=== PATIENT | male | born 1975 | race Caucasian/White ===

== ENCOUNTER 2016-10-27 10:15 | Inpatient (IN) | payer OTHER ==
--- NOTE | ~2016-10-27 | TN ---
Unit #: [id number] #: [id number] Patient: BROOKE DESOUZA [id number] [facility] [address] [place] [address] [id number] I MR#: [id number] NAME: BROOKE DESOUZA ROOM: P205 Age: 41 Sex: M Admission Date: 10/27/2016 : 1975 Discharge Date: 10/30/2016 Attending Physician: Madonna Toledo M.D. Primary Care Physician: Primary Care Physician No LOC TRANSFER NOTE DATE OF SERVICE: 10/31/2016 HISTORY OF PRESENT ILLNESS Mr. Desouza is a 41-year-old single white male who is known to me from long time from previous multiple encounters and has been coming to the inpatient unit repeatedly, and has been encouraged several times to come to the outpatient treatment program and he finally showed up. He was admitted under my care on the adult inpatient psychiatric and chemical dependency unit from 10/27/2016 to 10/30/2016 and was brought in with depression and anxiety, and being off his medication and needing medical detox from alcohol and opioids and was medically detoxed and was stabilized on his medications and stepped down to the outpatient treatment program. Upon evaluation by me, the patient reports that he is proud that he finally showed up for the program and that he wants to work on improving his life and staying sober and improving his depressive symptoms. He reports that he has not relapsed since he has been out of the hospital. SUBSTANCE ABUSE HISTORY The patient has extensive history of substance abuse and dependence and more recently, alcohol has been his drug of choice as he has been drinking regularly and heavily and has been mixing it with opioids on regular basis. PAST PSYCHIATRIC HISTORY The patient has had history of inpatient and outpatient psychiatric and chemical dependency treatment several times and has history of poor compliance with any treatment recommendations outside of the hospital. PAST MEDICAL HISTORY No acute or chronic medical illnesses. ALLERGIES Haldol and Depakote. PERSONAL AND SOCIAL HISTORY A 41-year-old white male who reports that he is single, unemployed, and lives with friends and has fairly decent social support system. MENTAL STATUS EXAMINATION Middle-aged white male who was casually dressed with fair personal hygiene, appears to be in no acute distress or discomfort. He was awake and alert on interaction with intact orientation to time, place, and person. His mood was anxious and depressed with a congruent affect. His Unit #: [id number] #: [id number] Patient: BROOKE DESOUZA speech was slow and goal directed. He denies any suicidal or homicidal ideations, and also denies any auditory or visual hallucinations. His insight and judgment remain slightly impaired. DIAGNOSTIC IMPRESSION Psychiatric: Major depressive disorder, recurrent, moderate, without psychotic features; alcohol dependence, moderate; opioid dependence, moderate. Medical: None. Stressors: Moderate psychosocial stressors. TREATMENT PLAN 1. The patient has presented with a history of mood disorder. We will recommend enrolling him into the outpatient treatment program and maintaining him on his current medications. We will monitor his response and make further adjustments as needed. 2. Supportive therapy was provided to the patient. ESTIMATED LENGTH OF STAY 14 to 21 days. ABILITY TO HELP SELF Limited. WILLINGNESS TO HELP SELF The patient appears to be willing to help self. STRENGTHS 1. Communicative. 2. Cooperative. PROBLEMS 1. Chronic dysphoric symptoms. 2. Poor social support system. DISCHARGE CRITERIA This will be contingent upon the patient's ability to show resolution of his depression and anxiety as well as his ability to stay safe to himself, particularly after discharge from the hospital. Dictated by... Elsa Jones/sara TD: 11/04/2016 14:17 JOB #: [id number] LOC TRANSFER NOTE Page 1 of 1 X Madnona Toledo MD X LOC TRANSFER NOTE
--- NOTE | ~2016-10-27 | HP ---
Unit #: [id number] #: [id number] Patient: BROOKE GOMEZ [id number] [place] [address] [id number] I MR#: [id number] NAME: BROOKE GOMEZ. ROOM: P205 Age: 41 Sex: M Admission Date: 10/27/2016 : 1975 Attending Physician: Madonna Toledo M.D. Admitting Physician: Madonna Toledo M.D. Primary Care Physician: Primary Care Physician No HISTORY AND PHYSICAL HISTORY OF PRESENT ILLNESS Brooke is a 41-year-old male admitted on 10/27/2016, to [address] [place] [address] for detox from alcohol. PAST MEDICAL HISTORY Seasonal allergies, arthritis and congenital macular degeneration. PAST SURGICAL HISTORY Right knee meniscus tear with surgical repair and 6 surgical eye repairs. SOCIAL HISTORY Smokes less than 1 pack of cigarettes daily. Drinks a fifth of alcohol daily. No illicit drug use. He is currently and living with his girlfriend. FAMILY HISTORY Noncontributory. REVIEW OF SYSTEMS CONSTITUTIONAL: No fever or chills. HEENT: Denies any sore throat, ear pain or runny nose. CARDIOVASCULAR: Denies chest pain, irregular heart rhythm or palpitations. CHEST: Denies shortness of breath or cough. No hemoptysis. GASTROINTESTINAL: Denies nausea, vomiting, diarrhea or chronic constipation. ENDOCRINE: Denies history of increased thirst or urination. No recent significant weight loss or gain. GENITOURINARY: Denies dysuria, frequency, or hematuria. SKIN: Denies any rashes. HEMATOLOGIC: Denies history of increased bleeding or bruising. MUSCULOSKELETAL: Denies any hot, swollen joints. No generalized muscle pain. NEUROLOGIC: Denies problems with vision or speech. No frequent, severe headaches. No numbness, tingling or weakness in any extremities. Denies loss of bladder or bowel control. CURRENT MEDICATIONS 1. Neurontin 2. Effexor 3. ALLERGIES No known drug allergies. Unit #: [id number] #: [id number] Patient: BROOKE GOMEZ PHYSICAL EXAMINATION GENERAL: Alert and oriented, in no acute distress. VITAL SIGNS: Blood pressure 146/92, heart rate 98, respirations 18, temperature 98.6. HEIGHT: 5 feet 6 inches WEIGHT: 152 pounds SKIN: Warm and dry without rash or lesion. HEENT: Normocephalic. TMs not viewed. Oral and nasal passages clear. Conjunctivae clear. PERRLA. EOMs intact. NECK: Supple without lymphadenopathy or thyromegaly. HEART: Regular rate and rhythm without murmur. LUNGS: Clear. ABDOMEN: Soft, nontender, without masses or hepatosplenomegaly. : Not done. EXTREMITIES: No evidence of cyanosis, clubbing or edema. Moves all without focal deficit. NEUROLOGICAL: Grossly within normal limits. Cranial Nerves: II: Visual cruz are intact. III, IV AND : Extraocular movements are intact. Pupils are equal, round and reactive to light. V: Facial sensation is grossly normal. VII: Facial movements and expression are normal. VIII: Auditory acuity grossly intact. IX, X: Uvula is midline. Phonation is normal. XI: Patient shrugs shoulders and turns head normally. XII: Tongue protrudes in the midline. Sensory and Motor Function: Sensory and motor sensation is grossly normal. Motor: moves all extremities well. Coordination: Gait is normal. Deep Tendon Reflexes: Intact. MEDICAL ASSESSMENT AND PLAN Psychiatric admission RECOMMENDATIONS 1. Psychiatric, per psychiatrist. 2. Medical, no contraindications to participating in facility's activities. MEDICAL PROGNOSIS Good. MEDICAL CONDITION Stable. Dictated by... Etienne Dominguez/lauren TD: 10/27/2016 15:50 JOB #: [id number] Unit #: [id number] #: [id number] Patient: BROOKE GOMEZ HISTORY AND PHYSICAL Page 1 of 1 X MONIQUE SNELL APRN HISTORY AND PHYSICAL
--- NOTE | ~2016-10-27 | PN ---
Unit #: [id number] #: [id number] Patient: BROOKE DESOUZA [id number] [facility] [address] [place] [address] [id number] I MR#: [id number] NAME: BROOKE DESOUZA. ROOM: P205 Age: 41 Sex: M Admission Date: 10/27/2016 : 1975 Attending Physician: Madonna Toledo M.D. Admitting Physician: Madonna Toledo M.D. Primary Care Physician: Primary Care Physician Shirley SHEPPARD PROGRESS NOTES DATE 10/28/2016 DISCUSSION Mr. Desouza is a 41-year-old, white male who was seen today and chart was reviewed and case was discussed with the staff. He has been anxious, withdrawn and rather seclusive to himself. Meanwhile, he has been cooperative with treatment recommendations. He has been taking medications and tolerating them fairly well with no reported side effects. MENTAL STATUS EXAM Middle-aged white male who was casually dressed with fair personal hygiene, appears to be in no acute distress or discomfort. He was awake and alert on interaction with intact orientation. His mood was anxious with congruent affect. He denies any suicidal or homicidal ideation. His insight and judgement remains slightly impaired. TREATMENT PLAN 1. We will continue him on his current treatment protocol. We will monitor his response to the medication and make further adjustments as needed. 2. We will continue to follow up. Dictated by... Elsa Jones/russ TD: 10/29/2016 23:15 JOB #: [id number] Unit #: [id number] #: [id number] Patient: BROOKE DESOUZA VALARIE PROGRESS NOTES Page 1 of 1 X Madonna Toledo MD PROGRESS NOTE
--- NOTE | ~2016-10-27 | PA ---
Unit #: [id number] #: [id number] Patient: BROOKE DESOUZA [id number] [facility] [address] [place] [address] [id number] MR#: [id number] NAME: BROOKE DESOUZA ROOM: P205 Age: 41 Sex: M Admission Date: 10/27/2016 : 1975 Date of Assessment: Attending Physician: Madonna Toledo M.D. Admitting Physician: Madonna Toledo M.D. Primary Care Physician: Primary Care Physician No PSYCHIATRIC ASSESSMENT DATE OF SERVICE 10/27/2016. IDENTIFYING DATA Mr. Desouza is a 41-year-old single white male, who is a resident of [place], [place], and is very well known to us from previous multiple encounters, and was self-referred to the hospital on a voluntary basis. CHIEF COMPLAINT "I need help and I need detox." HISTORY OF PRESENT ILLNESS Mr. Desouza is a 41-year-old white male with history of chemical dependency, who presented to the hospital stating that he has been drinking a fifth of vodka a day and it has been approximately 27 hours since he last drank and he feels extremely weak and that last night he went to the hospital at [facility] and was admitted and he went to the hospital because he felt that he was going to have a seizure and that he was given a shot of Ativan and was discharged a few hours ago and hospital paid for a cab and was transferred to [facility][1] for assessment. The patient stated over the past 3 weeks he has been drinking a fifth of vodka a day and that he relapsed 3 weeks ago after he has been drinking to watch the basketball game and stated that he is currently having suicidal thoughts and that his plan will be to slit his wrist. He stated that he does not want to harm anyone else and was exhibiting some significant depression, anxiety, feelings of hopelessness and helplessness, and suicidal ideations with intent and plan and as such, recommendation for inpatient level of care for safety and stabilization was made. SUBSTANCE ABUSE HISTORY The patient has history of alcohol and benzodiazepine dependence, reports that he has been currently drinking a fifth of alcohol on a daily basis. PAST PSYCHIATRIC HISTORY The patient has had history of multiple inpatient chemical dependency treatment including being at [facility], [facility], and other facilities and has history of poor compliance with any treatment recommendation, once again has not been compliant with his medication, is not seeing a psychiatrist, and is not taking any psychotropic medications. PAST MEDICAL HISTORY No acute or chronic medical illnesses. Unit #: [id number] #: [id number] Patient: BROOKE DESOUZA ALLERGIES No known medication allergies. PERSONAL AND SOCIAL HISTORY A 41-year-old white male, who reports that he is single, unemployed, and lives alone and has poor social support system. MENTAL STATUS EXAMINATION Middle-aged white male who was casually dressed with fair personal hygiene, appears to be in no acute distress or discomfort. He was awake and alert on interaction with intact orientation to time, place, and person. His mood was anxious and depressed with a congruent affect. His speech was slow and restricted in content. His thought processes were disorganized with some looseness of associations and suicidal ideations. His insight and judgment remain significantly impaired. DIAGNOSTIC IMPRESSION Psychiatric: Major depressive disorder, recurrent, moderate, without psychotic features; alcohol dependence, moderate and acute withdrawals. Medical: None. Stressors: Moderate psychosocial stressors. TREATMENT PLAN 1. The patient has presented with history of mood disorder and substance abuse and has been decompensating and will need inpatient hospitalization for detoxification, safety, and stabilization. We will start him on detox protocol. We will closely monitor for any worsening withdrawal symptoms. 2. Supportive therapy was provided to the patient. 3. Safe, structured, and nourishing environment will be provided. ESTIMATED LENGTH OF STAY 4 to 5 days. ABILITY TO HELP SELF Limited. WILLINGNESS TO HELP SELF The patient appears to be willing to help self. STRENGTHS 1. Communicative. 2. Cooperative. PROBLEMS 1. Chronic dysphoric symptoms. 2. Chronic chemical dependency. 3. Poor social support system. DISCHARGE CRITERIA This will be contingent upon the patient's ability to show resolution of his depression and anxiety as well as his ability to stay safe to himself, particularly after discharge from the hospital. Dictated by... Madonna Toledo M.D. Unit #: [id number] #: [id number] Patient: BROOKE DESOUZA IAA/modl TD: 10/28/2016 07:25 JOB #: [id number] PSYCHIATRIC ASSESSMENT Page 1 of 1 X Madonna Toledo MD PSYCHIATRIC ASSESSMENT
--- NOTE | ~2016-10-27 | PN ---
Unit #: [id number] #: [id number] Patient: BROOKE GOMEZ [id number] [facility] [address] [place] [address] [id number] I MR#: [id number] NAME: BROOKE GOMEZ. ROOM: P205 Age: 41 Sex: M Admission Date: 10/27/2016 : 1975 Attending Physician: Madonna Toledo M.D. Admitting Physician: Madonna Toledo M.D. Primary Care Physician: Primary Care Physician Shirley MCBRIDE NOTES DATE OF SERVICE 10/29/2016 DISCUSSION Mr. Greenberg is a 41-year-old white male who was seen today. Chart was reviewed and case was discussed with the staff. He has been anxious, withdrawn, and rather seclusive to himself. Meanwhile, he has been cooperative with the treatment recommendations and has been taking the medications and tolerating them fairly well though has been isolating to himself and has been exhibiting significant depressive symptom. MENTAL STATUS EXAMINATION Middle-aged white male who is casually dressed with fair personal hygiene and appears to be in no acute distress or discomfort. The patient was awake and alert with intact orientation. His mood is anxious with congruent affect. He denies any suicidal or homicidal ideations. His insight and judgment remain slightly impaired. TREATMENT PLAN 1. We will continue him on his current treatment protocol. We will monitor his response to the medications and make further adjustments as needed. 2. We will continue to follow up. Dictated by... Elsa Jones/anisag TD: 10/30/2016 14:43 JOB #: [id number] Unit #: [id number] #: [id number] Patient: BROOKE GOMEZ VALARIE PROGRESS NOTES Page 1 of 1 X Madonna Toledo MD PROGRESS NOTE
[~2016-10-27 10:15] MED LIST: ALPRAZOLAM PO; BACTRIM DS TABL1 TA1 PO; DIAZEPAM PO; EFFEXOR; FLEXERIL PO; FLEXERIL10 MG PO; HYDROCODONE-APA1 T42 PO; IBUPROFEN400 MG PO; KEFLEX500 MG PO; KETOPROFEN PO; METHADONE PO; MOTRIN100 MG; NAPROSYN500 MG PO; NEURONTIN800 MG PO; PERCOCET 10-651 EACH PO; PERCOCET5/325 PO; PREDNISONE10 MG/DOSE PO; REMERON45 MG PO; SEROQUEL PO; SOMA PO; SOMA250 MG PO; SUBOXONE 8 MG-1 EAC1 SL; TRAMADOL HCL50 M2 PO; ULTRAM PO; UNKNOWN PAIN MED; VALIUM10 MG PO; VICODIN 5/1 TAB 5/50 PO; XANAX0.5 MG PO; XANAX2 MG PO; ZANAFLEX2 MG PO; ZANAFLEX4 M1 PO
[2016-10-28 10:04] LABS: AMPHETAMINE NEG (NEG); BARBITURATES NEG (NEG); BENZODIAZEPINES POS (NEG); COCAINE NEG (NEG); MARIJUANA NEG (NEG); OPIATES NEG (NEG); TRICYCLIC ANTIDEPRESSANTS NEG (NEG); U METHADONE NEG (NEG)
[2016-10-28 10:33] LABS: URINE APPEARANCE CLEAR; URINE BILIRUBIN NEG (NEG); URINE BLOOD NEG (NEG); URINE COLOR YELLOW; URINE GLUCOSE NEG (NEG); URINE KETONE NEG (NEG); URINE LEUKOCYTE ESTERASE NEG (NEG); URINE NITRATE NEG (NEG); URINE PROTEIN NEG (NEG); URINE UROBILINOGEN 0.2 MG/DL (NEG)
== END 2016-10-30 13:04 | disposition home or self-care (01) | DRG 885 ==
LOC: P2S 10:15
PROVIDERS: Psychiatry & Neurology Psychiatry
DX: F33.1 Major depressive disorder, recurrent, moderate (principal); R45.851 Suicidal ideations; F10.239 Alcohol dependence with withdrawal, unspecified; F17.210 Nicotine dependence, cigarettes, uncomplicated; F41.9 Anxiety disorder, unspecified
CPT/HCPCS: 80307; 81003

== ENCOUNTER 2017-01-11 08:00 | Inpatient (IN) | payer OTHER ==
--- NOTE | ~2017-01-11 | PN ---
Unit #: [id number] #: [id number] Patient: BROOKE DESOUZA [id number] [facility] [address] [place] [address] [id number] MR#: [id number] NAME: BROOKE DESOUZA. ROOM: P209 Age: 41 Sex: M Admission Date: 01/11/2017 : 1975 Attending Physician: Madonna Toledo M.D. Admitting Physician: Madonna Toledo M.D. Primary Care Physician: Elsa Daniels PROGRESS NOTES DATE 01/12/2017 DISCUSSION Mr. Desouza is a 41-year-old, white male who was seen today and chart was reviewed and case was discussed with the staff. He has been anxious, withdrawn and rather seclusive to himself. Meanwhile, he has been cooperative with treatment recommendations. He has been taking the medication and tolerating them fairly well with no reported side effects. MENTAL STATUS EXAM Middle-aged white male who was casually dressed with fair personal hygiene, appears to be in distress and discomfort. He was awake and alert with intact orientation. His mood was anxious with congruent affect. He denies any suicidal or homicidal ideation. His insight and judgement remains slightly impaired. TREATMENT PLAN 1. We will continue him on his current treatment protocol. We will monitor his response to the medication and make further adjustments as needed. 2. We will continue to follow up. Dictated by... Elsa Jones/russ TD: 01/13/2017 02:48 JOB #: [id number] Unit #: [id number] #: [id number] Patient: BROOKE DESOUZA VALARIE PROGRESS NOTES Page 1 of 1 X Madonna Toledo MD X PROGRESS NOTE
--- NOTE | ~2017-01-11 | HP ---
Unit #: [id number] #: [id number] Patient: BROOKE GOMEZ [id number] [place] [address] [id number] MR#: [id number] NAME: BROOKE GOMEZ ROOM: P209 Age: 41 Sex: M Admission Date: 01/11/2017 : 1975 Attending Physician: Madonna Toledo M.D. Admitting Physician: Madonna Toledo M.D. Primary Care Physician: Dick Chino M.D. HISTORY AND PHYSICAL HISTORY OF PRESENT ILLNESS Brooke is a 41-year-old male admitted on 01/11/[address] [place] [address] for detox from alcohol. PAST MEDICAL HISTORY 1. Arthritis. 2. Macular degeneration. 3. Chronic back and knee pain. PAST SURGICAL HISTORY 1. Multiple eye surgeries. 2. Right knee surgical repair after a meniscus tear. ALLERGIES Haldol and Depakote. SOCIAL HISTORY He smokes 3/4 pack of cigarettes daily. Drinks a fifth of alcohol daily. No illegal drug use. He is currently and living with his girlfriend. FAMILY HISTORY Noncontributory. REVIEW OF SYSTEMS CONSTITUTIONAL: No fever or chills. HEENT: Denies any sore throat, ear pain or runny nose. CARDIOVASCULAR: Denies chest pain, irregular heart rhythm or palpitations. CHEST: Denies shortness of breath or cough. No hemoptysis. GASTROINTESTINAL: Denies nausea, vomiting, diarrhea or chronic constipation. ENDOCRINE: Denies history of increased thirst or urination. No recent significant weight loss or gain. GENITOURINARY: Denies dysuria, frequency, or hematuria. SKIN: Denies any rashes. HEMATOLOGIC: Denies history of increased bleeding or bruising. MUSCULOSKELETAL: Denies any hot, swollen joints. No generalized muscle pain. NEUROLOGIC: Denies problems with vision or speech. No frequent, severe headaches. No numbness, tingling or weakness in any extremities. Denies loss of bladder or bowel control. CURRENT MEDICATIONS Unit #: [id number] #: [id number] Patient: BROOKE GOMEZ 1. Effexor. 2. Remeron. 3. Ibuprofen. 4. Neurontin. PHYSICAL EXAMINATION GENERAL: Alert, oriented, in no acute distress. VITAL SIGNS: Blood pressure 152/90, heart rate 92, respirations 18, temperature 98.1. HEIGHT: 5 feet 5. WEIGHT: 149 pounds. SKIN: Warm and dry without rash or lesion. HEENT: Normocephalic. TMs not viewed. Oral and nasal passages clear. Conjunctivae clear. PERRLA. EOMs intact. NECK: Supple without lymphadenopathy or thyromegaly. HEART: Regular rate and rhythm without murmur. LUNGS: Clear. ABDOMEN: Soft, nontender, without masses or hepatosplenomegaly. : Not done. EXTREMITIES: No evidence of cyanosis, clubbing or edema. Moves all without focal deficit. NEUROLOGICAL: Grossly within normal limits. Cranial Nerves: II: Visual cruz are intact. III, IV AND : Extraocular movements are intact. Pupils are equal, round and reactive to light. V: Facial sensation is grossly normal. VII: Facial movements and expression are normal. VIII: Auditory acuity grossly intact. IX, X: Uvula is midline. Phonation is normal. XI: Patient shrugs shoulders and turns head normally. XII: Tongue protrudes in the midline. Sensory and Motor Function: Sensory and motor sensation is grossly normal. Motor: moves all extremities well. Coordination: Gait is normal. Deep Tendon Reflexes: Intact. IMPRESSION 1. Psychiatric admission. 2. Arthritis. 3. Chronic back and knee pain. 4. Macular degeneration. RECOMMENDATIONS PSYCHIATRIC: Per psychiatrist. MEDICAL: No contraindications to participate in facility's activities. MEDICAL PROGNOSIS Good. MEDICAL CONDITION Stable. Dictated by... Lissette Calloway A.P.R.N. [facility] Unit #: [id number] #: [id number] Patient: BROOKE GOMEZ TD: 01/11/2017 17:57 JOB #: [id number] HISTORY AND PHYSICAL Page 1 of 1 X LISSETTE SNELL APRN HISTORY AND PHYSICAL
--- NOTE | ~2017-01-11 | CO ---
Unit #: [id number] #: [id number] Patient: BROOKE GOMEZ [id number] [facility] [address] [place] [address] [id number] I MR#: [id number] NAME: BROOKE GOMEZ. ROOM: P209 Age: 41 Sex: M Admission Date: 01/11/2017 : 1975 Attending Physician: Madonna Toledo M.D. Primary Care Physician: Dick Chino M.D. Consultation Date: 01/12/2017 CONSULTATION REPORT ORDERING PROVIDER Dr. Toledo. REASON FOR CONSULT Frequent urination and body aches for 3 to 4 days. SUBJECTIVE The patient reports that he is urinating up to 2 times an hour. There is no dysuria, but sometimes he has a foul odor to his urine. He denies having any sexually transmitted infections or any history of HIV. He denies diabetes or high blood sugars. He does report some body aches especially in his lower back. He denies any other symptoms. OBJECTIVE His examination was unremarkable. Of note, he was seen by the nurse practitioner yesterday and ordered a urinalysis and blood work, but it has not been completed. His vital signs are stable. ASSESSMENT Frequent urination and body aches. PLAN Plan is to evaluate lab work when it is completed. Dictated by... Etienne Smalls/sara TD: 01/12/2017 22:35 JOB #: [id number] Unit #: [id number] #: [id number] Patient: BROOKE GOMEZ CONSULTATION REPORT Page 1 of 1 X ISAAC NICOLE APRN CONSULTATION REPORT
--- NOTE | ~2017-01-11 | PA ---
Unit #: [id number] #: [id number] Patient: BROOKE DESOUZA [id number] [place] [address] [id number] I MR#: [id number] NAME: BROOKE DESOUZA ROOM: P209 Age: 41 Sex: M Admission Date: 01/11/2017 : 1975 Date of Assessment: Attending Physician: Madonna Toledo M.D. Admitting Physician: Madonna Toledo M.D. Primary Care Physician: Dick Chino M.D. PSYCHIATRIC ASSESSMENT IDENTIFYING DATA Mr. Desouza is a 41-year-old single white male, who is a resident of [place], [place], and is very well known to us from previous multiple encounters and was once again self-referred to the hospital on a voluntary basis. CHIEF COMPLAINT "I've a plan to cut both my legs and I've been drinking." HISTORY OF PRESENT ILLNESS Mr. Desouza is a 41-year-old white male with history of substance abuse and mood disorder, who was self-referred to the hospital with a blood alcohol level of 0.195 and reports increasing depression, drinking, and having withdrawal symptoms. "I want to get help, yesterday I drank one fifth of vodka and this has been going on for 40 days. I have been thinking about killing myself for 3 days." He does report poor social support system with increasing depression, anxiety, irritability, feelings of hopelessness and helplessness, suicidal ideations, intent, or plan and has history of suicide attempts in the past, and as such, recommendation for inpatient level of care for safety and stabilization was made and the patient was transferred to us. SUBSTANCE ABUSE HISTORY The patient does have a history of experimentation with benzodiazepines, amphetamines, and opioids but currently alcohol has been his drug of choice and reports that he has been drinking since he was 13 years old. Currently has been drinking one fifth of vodka a day. PAST PSYCHIATRIC HISTORY The patient has a history of multiple inpatient psychiatric hospitalizations at [facility] and other facilities and has done long-term rehab level as well. However, he has a history of poor compliance with treatment and recommendation and as such, has been decompensating. PAST MEDICAL HISTORY The patient's medical history is significant for episodes of hepatitis C. ALLERGIES Haldol and Depakote. PERSONAL AND SOCIAL HISTORY A 41-year-old white male, who reports he lives at home with his girlfriend Unit #: [id number] #: [id number] Patient: BROOKE DESOUZA and has poor social support system. He is currently unemployed. MENTAL STATUS EXAMINATION Middle-aged white male, who was casually dressed with fair personal hygiene, appears to be in no acute distress or discomfort. He was awake and alert on interaction with intact orientation to time, place, and person. His mood was anxious and depressed with a congruent affect. His speech was slow and restricted in content. His thought processes were disorganized with some looseness of associations and flight of ideas. His insight and judgment remain significantly impaired. DIAGNOSTIC IMPRESSION Psychiatric: Major depressive disorder, recurrent, moderate, without psychotic features; alcohol dependence, moderate. Medical: Hepatitis C. Stressors: Moderate psychosocial stressors. TREATMENT PLAN 1. The patient has presented with history of substance abuse and mood disorder and has been decompensating and will need inpatient hospitalization for detoxification, safety, and stabilization. We will start him back on his home medications. We will adjust the medications and monitor response. 2. Supportive therapy was provided to the patient. 3. Safe, structured, and nourishing environment will be reported. ESTIMATED LENGTH OF STAY 5 to 7 days. ABILITY TO HELP SELF Limited. WILLINGNESS TO HELP SELF The patient appears to be willing to help self. STRENGTHS 1. Communicative. 2. Cooperative. PROBLEMS 1. Chronic dysphoric symptoms. 2. Poor social support system. DISCHARGE CRITERIA This will be contingent upon the patient's ability to show resolution of his depression and anxiety and his ability to go through detox without having any significant withdrawal symptoms. Dictated by... Elsa Jones/sara TD: 01/12/2017 11:49 Unit #: [id number] #: [id number] Patient: BROOKE DESOUZA JOB #: [id number] PSYCHIATRIC ASSESSMENT Page 1 of 1 X Madonna Toledo MD PSYCHIATRIC ASSESSMENT
--- NOTE | ~2017-01-11 | DS ---
Unit #: [id number] #: [id number] Patient: BROOKE DESOUZA [id number] [place] [address] [id number] I MR#: [id number] NAME: BROOKE DESOUZA. ROOM: P209 Age: 41 Sex: M Admission Date: 01/11/2017 : 1975 Discharge Date: 01/15/2017 Attending Physician: Madonna Toledo M.D. Primary Care Physician: Dick Chino M.D. DISCHARGE SUMMARY IDENTIFICATION DATA Mr. Desouza is a 41-year-old single white male who was a resident of [place], [place], and is known to us from previous multiple encounters and was self-referred to the hospital on voluntary basis. DISCHARGE DIAGNOSES PSYCHIATRIC: Major depressive disorder, recurrent, moderate, without psychotic features. Alcohol dependence, moderate, in acute withdrawal. MEDICAL: Hepatitis C. STRESSORS: Moderate psychosocial stressors. HISTORY OF PRESENT ILLNESS Same as in initial psychiatric evaluation. PAST PSYCHIATRIC HISTORY Same as in initial psychiatric evaluation. PAST MEDICAL HISTORY Same as in initial psychiatric evaluation. HOSPITAL COURSE The patient was admitted to the adult chemical dependency unit at [facility] and was oriented to the hospital environment. Routine p.r.n. medications were initiated, and he was started on the alcohol detox protocol. However, he was not clearly seen to be participating very much in treatment-related activities and not really interested in carrying on any therapeutic conversation and was just sleeping in his room, and then on the evening of January 15, he informed the staff that he is on home incarceration program and has an ankle bracelet, and his staff mine warfare officer has called stating that he wanted him to be there this evening or that he is going to be arrested, and he was wanting to go on with denying his suicidal ideations. As such it was decided that the patient will be discharge, and we will recommend ongoing outpatient psychiatric treatment. DISCHARGE MEDICATIONS None. CONDITION AT DISCHARGE Stable. PROGNOSIS Guarded. Unit #: [id number] #: [id number] Patient: BROOKE DESOUZA Dictated by... Madonna Toledo M.D. IAA/bzg TD: 01/17/2017 10:48 JOB #: [id number] DISCHARGE SUMMARY Page 1 of 1 X Madonna Toledo MD DISCHARGE SUMMARY
--- NOTE | ~2017-01-11 | PN ---
Unit #: [id number] #: [id number] Patient: BROOKE DESOUZA [id number] [facility] [address] [place] [address] [id number] I MR#: [id number] NAME: BROOKE DESOUZA. ROOM: P209 Age: 41 Sex: M Admission Date: 01/11/2017 : 1975 Attending Physician: Madonna Toledo M.D. Admitting Physician: Madonna Toledo M.D. Primary Care Physician: Elsa Daniels PROGRESS NOTES DATE January 15, 2017 DISCUSSION Mr. Desouza is a 41-year-old white male, who was seen today and chart was reviewed and the case was discussed with the staff. He remains anxious, withdrawn, depressed, and rather seclusive to himself. He has been taking the medications and tolerating them fairly well with no reported side effects. MENTAL STATUS EXAMINATION Middle-aged white male, who was casually dressed with fair personal hygiene and appears to be in no acute distress or discomfort. He was awake and alert on interaction with intact orientation. His mood is anxious with a congruent affect. He denies any suicidal or homicidal ideations, and also denies any auditory or visual hallucinations. His insight and judgment remain slightly impaired. TREATMENT PLAN 1. We will continue him on his current treatment protocol, and will monitor his response to the medications, and make further adjustments as needed. 2. We will continue to followup. Dictated by... Elsa Jones/jana TD: 01/15/2017 12:18 JOB #: [id number] Unit #: [id number] #: [id number] Patient: BROOKE DESOUZA VALARIE PROGRESS NOTES Page 1 of 1 X Madonna Toledo MD X PROGRESS NOTE
--- NOTE | ~2017-01-11 | CO ---
Unit #: [id number] #: [id number] Patient: BROOKE GOMEZ [id number] [place] [address] [id number] I MR#: [id number] NAME: BROOKE GOMEZ ROOM: P209 Age: 41 Sex: M Admission Date: 01/11/2017 : 1975 Attending Physician: Madonna Toledo M.D. Primary Care Physician: Dick Chino M.D. Consultation Date: 01/11/2017 CONSULTATION REPORT HISTORY OF PRESENT ILLNESS Brooke reports that for the past several days, he has noticed increased urinary frequency with burning with urination. He has not noticed any blood in his urine. No back pain or fevers. He also has complaints of muscle cramps and reports he takes Flexeril at home and would like a prescription for this. He has no other complaints. PHYSICAL EXAMINATION CARDIAC: Regular rate and rhythm. No murmurs, gallops, or rubs. RESPIRATORY: Clear to auscultation bilaterally. ABDOMEN: Bowel sounds positive in all quadrants. No abdominal tenderness to palpation. No CVA tenderness or flank pain. ASSESSMENT AND PLAN 1. Dysuria. We will obtain UA with culture and sensitivity. Once UA results are available, we will consider starting antibiotic if needed. 2. Muscle cramps. We will begin Flexeril 1 p.o. q.12 hours p.r.n. muscle cramps. Please notify, if symptoms are unresolved. Dictated by... Lissette Calloway A.P.R.N. for Elsa Hickey/sara TD: 01/11/2017 22:15 JOB #: [id number] CONSULTATION REPORT Page 1 of 1 X LISSETTE SNELL APRN CONSULTATION REPORT
--- NOTE | ~2017-01-11 | PN ---
Unit #: [id number] #: [id number] Patient: BROOKE DESOUZA [id number] [facility] [address] [place] [address] [id number] I MR#: [id number] NAME: BROOKE DESOUZA. ROOM: P209 Age: 41 Sex: M Admission Date: 01/11/2017 : 1975 Attending Physician: Madonna Toledo M.D. Admitting Physician: Madonna Toledo M.D. Primary Care Physician: Elsa Daniels PROGRESS NOTES DATE 01/14/2017 DISCUSSION Mr. Desouza is a 15-year-old, white male who was seen today and chart was reviewed and case was discussed with the staff. He has been anxious, withdrawn and rather seclusive to himself. Meanwhile, he has been showing persistent depressive symptoms. Meanwhile, he has been taking medications and tolerating them fairly well. MENTAL STATUS EXAM Middle-aged white male who was casually dressed with fair personal hygiene, appears to be in no acute distress or discomfort. He was awake and alert with intact orientation. His mood was anxious with congruent affect. He denies any suicidal or homicidal ideation. Also, denies any auditory or visual hallucinations. His insight and judgement remains slightly impaired. TREATMENT PLAN 1. We will continue him on his current medications and treatment protocol. We will monitor his response and make further adjustments as needed. 2. We will continue to follow up. Dictated by... Elsa Jones/russ TD: 01/14/2017 21:35 JOB #: [id number] Unit #: [id number] #: [id number] Patient: BROOKE DESOUZA VALARIE PROGRESS NOTES Page 1 of 1 X Madonna Toledo MD PROGRESS NOTE
--- NOTE | ~2017-01-11 | PN ---
Unit #: [id number] #: [id number] Patient: BROOKE DESOUZA [id number] [facility] [address] [place] [address] [id number] I MR#: [id number] NAME: BROOKE DESOUZA. ROOM: P209 Age: 41 Sex: M Admission Date: 01/11/2017 : 1975 Attending Physician: Madonna Toledo M.D. Admitting Physician: Madonna Toledo M.D. Primary Care Physician: Elsa Daniels PROGRESS NOTES DATE 01/13/2017 DISCUSSION Mr. Desouza is a 41-year-old, white male who was seen today and chart was reviewed and case was discussed with the staff. He has been anxious, withdrawn and rather seclusive to himself. Meanwhile, he has been cooperative with the treatment recommendations. He has been taking the medication and tolerating them fairly well with no reported side effects. MENTAL STATUS EXAM Middle-aged white male who was casually dressed with fair personal hygiene, appears to be in no acute distress or discomfort. He was awake and alert on interaction with intact orientation. His mood was anxious with congruent affect. He denies any suicidal or homicidal ideation. His insight and judgement remains slightly impaired. TREATMENT PLAN 1. We will continue him on his current medications and treatment protocol. We will monitor his response to the medication and make further adjustments as needed. 2. We will continue to follow up. Dictated by... Elsa Jones/russ TD: 01/14/2017 02:39 JOB #: [id number] Unit #: [id number] #: [id number] Patient: BROOKE DESOUZA VALARIE PROGRESS NOTES Page 1 of 1 X Madonna Toledo MD PROGRESS NOTE
[2017-01-14 12:48] LABS: URINE APPEARANCE CLEAR; URINE BILIRUBIN NEG (NEG); URINE BLOOD NEG (NEG); URINE COLOR DK YELLOW; URINE GLUCOSE NEG (NEG); URINE KETONE NEG (NEG); URINE LEUKOCYTE ESTERASE NEG (NEG); URINE NITRATE NEG (NEG); URINE PH 7.5 (5-8); URINE PROTEIN NEG (NEG); URINE SPECIFIC GRAVITY 1.025 (1.003-1.035)
== END 2017-01-15 20:35 | disposition left against medical advice (07) | DRG 885 ==
LOC: P2S 10:03
PROVIDERS: Psychiatry & Neurology Psychiatry
PROC: HZ2ZZZZ Detoxification Services for Substance Abuse Treatment (ICD-10-PCS; principal; 2017-01-11)
DX: F33.1 Major depressive disorder, recurrent, moderate (principal); B19.20 Unspecified viral hepatitis C without hepatic coma; F10.20 Alcohol dependence, uncomplicated; Z88.8 Allergy status to other drugs, medicaments and biological substances; G89.29 Other chronic pain; M25.569 Pain in unspecified knee; M19.90 Unspecified osteoarthritis, unspecified site; F17.210 Nicotine dependence, cigarettes, uncomplicated; M54.9 Dorsalgia, unspecified; H35.30 Unspecified macular degeneration; R30.0 Dysuria; R25.2 Cramp and spasm; R35.0 Frequency of micturition
CPT/HCPCS: 81003

== ENCOUNTER 2017-03-08 16:00 | Inpatient (IN) | payer OTHER ==
[~2017-03-08] VITALS: Ht 167.6 cm; Wt 65.8 kg
--- NOTE | ~2017-03-08 | HP ---
Unit #: [id number] #: [id number] Patient: BROOKE GOMEZ [id number] [place] [address] [id number] I MR#: [id number] NAME: BROOKE GOMEZ. ROOM: 84 Age: 41 Sex: M Admission Date: 03/08/2017 : 1975 Attending Physician: Madonna Toledo M.D. Admitting Physician: Madonna Toledo M.D. Primary Care Physician: Dick Chino M.D. HISTORY AND PHYSICAL HISTORY OF PRESENT ILLNESS The patient is a 41-year-old male admitted to [facility] on 03/08/2017 for suicidal ideations. PAST MEDICAL HISTORY 1. Arthritis. 2. Macular degeneration. 3. Chronic pain. 4. Hepatitis C. PAST SURGICAL HISTORY 1. Eye surgery. 2. Right knee. 3. Heart cath. SOCIAL HISTORY He is disabled. He lives with his aunt. He smokes one pack of cigarettes daily, drinks a fifth of vodka per day and has a history of polysubstance use. FAMILY MEDICAL HISTORY Noncontributory. ALLERGIES Haldol and Depakote. CURRENT MEDICATIONS Include gabapentin and Remeron. REVIEW OF SYSTEMS CONSTITUTIONAL: No fever or chills. HEENT: Denies any sore throat, ear pain or runny nose. CARDIOVASCULAR: Denies chest pain, irregular heart rhythm or palpitations. CHEST: Denies shortness of breath or cough. No hemoptysis. GASTROINTESTINAL: Denies nausea, vomiting, diarrhea or chronic constipation. ENDOCRINE: Denies history of increased thirst or urination. No recent significant weight loss or gain. GENITOURINARY: Denies dysuria, frequency, or hematuria. SKIN: Denies any rashes. HEMATOLOGIC: Denies history of increased bleeding or bruising. MUSCULOSKELETAL: Denies any hot, swollen joints. No generalized muscle pain. Unit #: [id number] #: [id number] Patient: BROOKE GOMEZ NEUROLOGIC: Denies problems with vision or speech. No frequent, severe headaches. No numbness, tingling or weakness in any extremities. Denies loss of bladder or bowel control. PHYSICAL EXAM GENERAL: He is awake, alert and oriented in no acute distress. VITAL SIGNS: Temperature 98.9, heart rate 107, respiration 18, blood pressure 116/87. HEIGHT: 5 foot 6. WEIGHT: 145 pounds. SKIN: Warm and dry without rash or lesion. HEENT: Normocephalic. TMs not viewed. Oral and nasal passages clear. Conjunctivae clear. PERRLA. EOMs intact. NECK: Supple without lymphadenopathy or thyromegaly. HEART: Regular rate and rhythm without murmur. LUNGS: Clear. ABDOMEN: Soft, nontender. : Not done. EXTREMITIES: No evidence of cyanosis, clubbing or edema. Moves all without focal deficit. NEUROLOGICAL: Grossly within normal limits. Cranial Nerves: II: Visual cruz are intact. III, IV AND : Extraocular movements are intact. Pupils are equal, round and reactive to light. V: Facial sensation is grossly normal. VII: Facial movements and expression are normal. VIII: Auditory acuity grossly intact. IX, X: Uvula is midline. Phonation is normal. XI: Patient shrugs shoulders and turns head normally. XII: Tongue protrudes in the midline. Sensory and Motor Function: Sensory and motor sensation is grossly normal. Motor: moves all extremities well. IMPRESSION 1. Psychiatric admission. 2. Arthritis. 3. Macular degeneration. 4. Chronic pain. 5. Hepatitis C. RECOMMENDATIONS Psychiatric per psychiatrist. MEDICAL: No contraindication to participate in facility activities. MEDICAL PROGNOSIS Fair. MEDICAL CONDITION Stable. Dictated by... Etienne Smalls/russ Unit #: [id number] #: [id number] Patient: BROOKE GOMEZ TD: 03/10/2017 00:43 JOB #: [id number] HISTORY AND PHYSICAL Page 1 of 1 X ISAAC NICOLE APRN HISTORY AND PHYSICAL
--- NOTE | ~2017-03-08 | DS ---
Unit #: [id number] #: [id number] [facility]: [facility] [id number] [facility] [address] [place] [address] [id number] MR#: [id number] NAME: BROOKE DESOUZA. ROOM: P214 Age: 41 Sex: M Admission Date: 03/08/2017 : 1975 Discharge Date: 03/12/2017 Attending Physician: Madonna Toledo M.D. Primary Care Physician: Dick Chino M.D. DISCHARGE SUMMARY IDENTIFYING DATA Mr. Desouza is a 41-year-old single white male, who is very well known to us from previous multiple encounters and is a resident of [place], [place], and was self-referred to the hospital on a voluntary basis. DISCHARGE DIAGNOSES Psychiatric: Major depressive disorder, recurrent, moderate, without psychotic features; alcohol dependence, moderate and acute withdrawals. Medical: Hepatitis C. Stressors: Mild psychosocial stressors. HISTORY OF PRESENT ILLNESS Please see initial psychiatric evaluation for details. PAST PSYCHIATRIC HISTORY Please see initial psychiatric evaluation for details. PAST MEDICAL HISTORY Please see initial psychiatric evaluation for details. HOSPITAL COURSE The patient was [facility] and was oriented to the hospital environment. Routine p.r.n. medications were initiated, and he was started on the alcohol detox protocol and was closely monitored. He was once again seen to be anxious, withdrawn, and rather seclusive to himself and minimally interested and invested in treatment and as soon as he started feeling better, he started creating chaos and disturbance and threatening and pushing to leave and was denying any suicidal ideations, was not interested in any treatment at all and as such, it was decided that he will be discharged home and we will recommend ongoing outpatient psychiatric treatment, though he has refused to show up for any treatment recommendations every time he is in the hospital and I suspect that he probably would not be following up with any treatment recommendations outside of the hospital. DISCHARGE MEDICATIONS None. DISCHARGE CONDITION Stable. PROGNOSIS Fair. Unit #: [id number] #: [id number] Patient: BROOKE DESOUZA Dictated by... Elsa Jones/sara TD: 03/12/2017 07:37 JOB #: [id number] DISCHARGE SUMMARY Page 1 of 1 X Madonna Toledo MD DISCHARGE SUMMARY
--- NOTE | ~2017-03-08 | PN ---
Unit #: [id number] #: [id number] Patient: BROOKE DESOUZA [id number] [facility] [address] [place] [address] [id number] MR#: [id number] NAME: BROOKE DESOUZA. ROOM: P184 Age: 41 Sex: M Admission Date: 03/08/2017 : 1975 Attending Physician: Madonna Toledo M.D. Admitting Physician: Madonna Toledo M.D. Primary Care Physician: Elsa Daniels PROGRESS NOTES DATE OF SERVICE: 03/10/2017 SUBJECTIVE Mr. Desouza is a 41-year-old white male, who was seen today and chart was reviewed, and case was discussed with the staff. He has been anxious, withdrawn, seclusive to himself and he was noticed to be unkempt, disheveled and unable to carry on much conversation. He reports persistent depressive symptoms. Meanwhile, he has been taking medications and tolerating them fairly well with no reported side effects. MENTAL STATUS EXAMINATION Middle-aged white male who was casually dressed with marginal personal hygiene, appears to be in no acute distress or discomfort. He was awake and alert with impaired attention and concentration. His mood was anxious with a congruent affect. His speech was slow and goal directed. He reports having suicidal ideation, but denies any homicidal ideations. His insight and judgment remain slightly impaired. TREATMENT PLAN 1. We will continue on his current medications and treatment protocol. We will monitor his response to medications and make further adjustments as needed. 2. We will continue to follow up. Dictated by... Elsa Jones/sara TD: 03/10/2017 08:10 JOB #: [id number] Unit #: [id number] #: [id number] Patient: BROOKE DESOUZAPINKY PROGRESS NOTES Page 1 of 1 X Madonna Toledo MD PROGRESS NOTE
--- NOTE | ~2017-03-08 | PA ---
Unit #: [id number] #: [id number] Patient: BROOKE DESOUZA [id number] [facility] [address] [place] [address] [id number] MR#: [id number] NAME: BROOKE DESOUZA ROOM: P184 Age: 41 Sex: M Admission Date: 03/08/2017 : 1975 Date of Assessment: 03/09/2017 Attending Physician: Madonna Toeldo M.D. Admitting Physician: Madonna Toledo M.D. Primary Care Physician: Dick Chino M.D. PSYCHIATRIC ASSESSMENT DATE OF SERVICE 03/09/2017. IDENTIFYING DATA Mr. Desouza is a 41-year-old, single, white male who is very well known to us from previous multiple encounters and is a resident of [place], [place], and was self-referred to the hospital on a voluntary basis. CHIEF COMPLAINT "The last few days, I have been hopeless and currently suicidal." HISTORY OF PRESENT ILLNESS Mr. Desouza is a 41-year-old white male with history of mood disorder and substance abuse and dependence, who was self-referred to the hospital stating that he has been depressed and hopeless and suicidal, "my cousin overdosed and last week from heroin overdose, and this month has been the anniversary of mother's ." The patient stated that more he was drinking the more suicidal he felt, and stated that he was thinking about slicing his wrist and that he has been off his medication for some time and has been decompensating, and does report increasing depression, anxiety, irritability, feelings of hopelessness and helplessness, and suicidal ideations, intent or plan and as such, recommendation for inpatient level of care for safety and stabilization was made. The patient was stepped up to the inpatient unit. SUBSTANCE ABUSE HISTORY The patient has extensive history of substance abuse and dependence including alcohol, cocaine, cannabis, opiates, amphetamines, benzodiazepines, and methadone and appears that currently alcohol has been his drug of choice and reports that he has been drinking a fifth of vodka on a daily basis. PAST PSYCHIATRIC HISTORY The patient has had history of multiple inpatient psychiatric hospitalizations at [facility], and [facility], and it is estimated that he has been to [facility] at least 57 times. PAST MEDICAL HISTORY Hepatitis C, chronic back pain. ALLERGIES No known medication allergies. Unit #: [id number] #: [id number] Patient: BROOKE DESOUZA PERSONAL AND SOCIAL HISTORY A 41-year-old white male who reports that he is single and unemployed, and lives with his aunt and has poor social support system. MENTAL STATUS EXAMINATION Middle-aged white male who was casually dressed with fair personal hygiene, appears to be in no acute distress or discomfort. He was awake and alert on interaction with intact orientation to time, place, and person. His mood was anxious and depressed with a congruent affect. His speech was slow and restricted in content. His thought processes were disorganized with some looseness of associations and suicidal ideations. His insight and judgment remain significantly impaired. DIAGNOSTIC IMPRESSION Psychiatric: Major depressive disorder, recurrent, moderate, without psychotic features; alcohol dependence, moderate and acute withdrawals. Medical: Hepatitis C. Stressors: Moderate psychosocial stressors. TREATMENT PLAN 1. The patient has presented with history of mood disorder and substance abuse and has been decompensating and will need inpatient hospitalization for safety and stabilization. We will start him back on his home medications. We will adjust the medications and monitor response. 2. Supportive therapy was provided to the patient. 3. Safe, structured, and nourishing environment will be provided. ESTIMATED LENGTH OF STAY 5 to 7 days. ABILITY TO HELP SELF Limited. WILLINGNESS TO HELP SELF The patient appears to be willing to help self. STRENGTHS 1. Communicative. 2. Cooperative. PROBLEMS 1. Chronic dysphoric symptoms. 2. Poor social support system. DISCHARGE CRITERIA This will be contingent upon the patient's ability to show resolution of his depression and anxiety and his ability to stay safe to himself, particularly after discharge from the hospital. Dictated by... Elsa Jones/sara TD: 03/09/2017 19:56 JOB #: [id number] Unit #: [id number] #: [id number] Patient: BROOKE DESOUZA PSYCHIATRIC ASSESSMENT Page 1 of 1 X Madonna Toledo MD PSYCHIATRIC ASSESSMENT
--- NOTE | ~2017-03-08 | PA ---
Unit #: [id number] #: [id number] Patient: BROOKE DESOUZA [id number] [facility] [place] [address] [id number] MR#: [id number] NAME: BROOKE DESOUZA ROOM: P214 Age: 41 Sex: M Admission Date: 03/08/2017 : 1975 Date of Assessment: 03/19/2017 Attending Physician: Madonna Toledo M.D. Admitting Physician: Madonna Toledo M.D. Primary Care Physician: Dick Chino M.D. PSYCHIATRIC ASSESSMENT DATE OF SERVICE 03/19/2017. IDENTIFYING DATA Mr. Desouza is a 41-year-old single white male, who is a resident of [place], [place], and is very well known to us from previous multiple encounters and was recently discharged from my care 6 days ago and brought himself back to the hospital on a voluntary basis. CHIEF COMPLAINT "I started drinking again that day." HISTORY OF PRESENT ILLNESS Mr. Desouza is a 41-year-old white male with long history of multiple inpatient hospitalizations, who was just discharged 6 days ago and once again did not follow up with any treatment recommendations as he did not come to the outpatient program and did not even get his prescription filled, and once again, stated that he started drinking on the same day and reports that he overdosed on heroin, meth, and alcohol and was hospitalized and reports that once he was discharged, he went home and began drinking again and reports that his last drink was last night and that he has been experiencing withdrawal symptoms, though he has not been out of the hospital long enough to have another detox house, but he did and then reports having suicidal thoughts stating that he has a plan of wanting to cut his wrist and that nothing triggered him and was unable to identify any triggers or stressors; however, refusing to contract for safety and as such, inpatient hospitalization was recommended. SUBSTANCE ABUSE HISTORY The patient reports history of alcohol, cannabis, cocaine, opioids, methamphetamine, benzodiazepine, and spice abuse, and currently, reports alcohol to be his drug of choice, though he has been mixing it with other drugs. PAST PSYCHIATRIC HISTORY The patient has had a history of around 58 inpatient hospitalizations at [facility] and has been to [facility] and [facility] and has a history of poor compliance with treatment recommendations and once again is not active in any treatment outside of the hospital. PAST MEDICAL HISTORY The patient's medical history is significant for hepatitis C. Unit #: [id number] #: [id number] Patient: BROOKE DESOUZA PERSONAL AND SOCIAL HISTORY A 41-year-old white male, who reports that he is single, unemployed, and lives by himself and has poor social support system. MENTAL STATUS EXAMINATION Middle-aged white male, who was casually dressed with fair personal hygiene, appears to be in no acute distress or discomfort. He was awake and alert on interaction with intact orientation to time, place, and person. His mood was anxious and depressed with a congruent affect. His speech was slow and restricted in content. His thought processes were disorganized with some looseness of associations and suicidal ideations. His insight and judgment remain significantly impaired. DIAGNOSTIC IMPRESSION Psychiatric: Major depressive disorder, recurrent, moderate, without psychotic features and alcohol dependence, moderate. Medical: Hepatitis C. Stressors: Moderate psychosocial stressors. TREATMENT PLAN 1. The patient has presented with a history of mood disorder and substance abuse. We will recommend inpatient hospitalization for safety and stabilization. We will start him back on his home medications. We will adjust the medications and monitor response. 2. Supportive therapy was provided to the patient. ESTIMATED LENGTH OF STAY 3 to 4 days. ABILITY TO HELP SELF Limited. WILLINGNESS TO HELP SELF The patient appears to be willing to help self. STRENGTHS 1. Communicative. 2. Cooperative. PROBLEMS 1. Chronic dysphoric symptoms. 2. Chronic chemical dependency. 3. Poor social support system. DISCHARGE CRITERIA This will be contingent upon the patient's ability to show resolution of his depression and anxiety as well his ability to stay safe to himself, particularly after discharge from the hospital. Dictated by... Elsa Jones/sara TD: 03/19/2017 19:49 JOB #: [id number] Unit #: [id number] #: [id number] Patient: BROOKE DESOUZA PSYCHIATRIC ASSESSMENT Page 1 of 1 X Madonna Toledo MD PSYCHIATRIC ASSESSMENT
--- NOTE | ~2017-03-08 | A ---
[facility] Nutrition Therapy DATE: 03/10/17 Patient: BROOKE GOMEZ Physician: ALAN Address: [address] Room/Bed: [facility], Zip: [place] [address] Admit Date: 03/08/17 Date of : [birth year] Height: 5 6 Weight: [phone] NUTRITIONAL ASSESSMENT: REASON: 2 NUTRITIONAL RISK POINTS: UNINTENTIONAL WEIGHT LOSS, CHEWING/SWALLOWING DIFFICULTIES PATIENT ADMITTED FOR ETOH DETOX AND SI PMH: BACK PAIN, HEP C, ARTHRITIS, MACULAR DEGENERATION Anthropometrics: HT: 66", WT: 145#, BMI: 23.4 Labs: 03/09/17- ALL NUTRITION LABS WNL Meds: REMERON, NEURONTIN, MVI, DETOX PROTOCOL Assessment: PATIENT IS A 41 Y/O MALE ADMITTED FOR SI AND ETOH DETOX. PATIENT IS CURRENTLY ON DISABILITY D/T BEING LEGALLY BLIND, LIVES WITH HIS AUNT, SMOKES 1 PPD, HAS DAILY ETOH USE, AND HAS A HX OF HEROIN, AMPHETAMINES, AND OTHER POLYSUBSTANCE ABUSE. IT IS NOTED THAT PATIENT HAS BEEN NON-COMPLIANT WITH HIS MEDICATIONS PRIOR TO ADMIT, HE IS MED SEEKING, AND IRRITABLE AT TIMES. HE HAS FREQUENT ADMISSIONS TO THIS FACILITY. UPON ADMIT PATIENT STATED A POOR APETITE WITH A 10# WEIGHT LOSS X LAST SEVERAL MONTHS, AND HE SLEEPS 4HRS/NIGHT. WEIGHT HX PER [place] SHOWS STEADILY DECREASING WEIGHTS OVER THE LAST 3 YEARS; HOWEVER HE HAS HAD STABLE WEIGHTS X Y EAR (148# 1 YEAR AGO), AND HE HAS LOST 4# X 1 MONTH. NURSING REPORTS GOOD PO INTAKES. THERE ARE NO SKIN OR GI ISSUES NOTED ATT. PATIENT'S BMI IS WITHIN A HEALTHY RANGE AND HIS NUTRITIONAL LABS ARE ALL WNL. PATIENT SCORED A NUTRITIONAL RISK POINT FOR CHEWING AND SWALLOWING DIFFICULTIES; HOWEVER THERE ARE NO C/O C/S DIFFICULTIES AND HE IS ON A REGULAR DIET WITH NO CAFFEINE AND LARGE PORTION ENTREES. HE HAS NO HX OF CHEWING OR SWALLOWING DIFFICULTIES. Dx: UNINTENTIONAL WEIGHT LOSS R/T CURRENT CONDITIONS, ETOH ABUSE AEB SELF-REPORTED WEIGHT LOSS AND DECREASED APPETITE, 2 NUTRITIONAL RISK POINTS. Intervention: REGULAR DIET, LARGE PORTIONS, MEDS PER MD, DETOX, PSYCH Monitoring, Evaluation and Goals: 1. ADEQUATE PO INTAKES >50% OF MEALS 2. PREVENT, CORRECT MICRO/MACRO NUTRIENT DEFICIENCIES 3. WEIGHT; MAINTAIN CURRENT WEIGHT, PREVENT FURTHER WEIGHT LOSS MONITOR: WEIGHTS, LABS, PO/FLUID INTAKES [facility] DATE: 03/10/17 Patient: BROOKE Lovell PATRICIA Physician: ALAN Address: [address] Room/Bed: [address], Zip: [place] [address] Admit Date: 03/08/17 Date of : [birth year] Height: 5 6 Weight: [phone] Recommendations: 1. CONTINUE REGULAR DIET WITH NO CAFFEINE AND LARGE PORTION ENTREES TOLERATED. OFFER SNACKS BETWEEN MEALS 2. ENCOURAGE ADEQUATE PO AND FLUID INTAKES 3. OBTAIN WEIGHTS ROUTINELY (EVERY 3-4 DAYS) RD TO F/U PER PROTOCOL AND PRN R/T PATIENT MILDLY COMPROMISED Respectfully, CARLA FUNES RD, LD [facility] cc: client file
--- NOTE | ~2017-03-08 | PN ---
Unit #: [id number] #: [id number] Patient: BROOKE DESOUZA [id number] [facility] [address] [place] [address] [id number] MR#: [id number] NAME: BROOKE DESOUZA. ROOM: 84 Age: 41 Sex: M Admission Date: 03/08/2017 : 1975 Attending Physician: Madonna Toledo M.D. Admitting Physician: Madonna Toledo M.D. Primary Care Physician: Elsa Daniels PROGRESS NOTES DATE OF SERVICE 03/11/2017 DISCUSSION Mr. Desouza is a 41-year-old white male who was seen today. Chart was reviewed and case was discussed with the staff. He was seen to be anxious, withdrawn, depressed, and rather seclusive to himself. Meanwhile, he has been cooperative with treatment recommendations and has been taking the medications and tolerating them fairly well with no reported side effects. MENTAL STATUS EXAMINATION Middle-aged white male who is casually dressed with fair personal hygiene, appears to be in no acute distress or discomfort. He was awake and alert on interaction with intact orientation. His mood is anxious with congruent affect. His speech is slow and goal-directed. He denies any suicidal or homicidal ideations and also denies any auditory or visual hallucinations. His insight and judgment remain slightly impaired. TREATMENT PLAN 1. We will continue him on his current medications and treatment protocol. We will monitor his response to the medications and make further adjustments as needed. 2. We will continue to follow up. Dictated by... Elsa Jones/darren TD: 03/11/2017 12:50 JOB #: [id number] Unit #: [id number] #: [id number] Patient: BROOKE DESOUZAPINKY PROGRESS NOTES Page 1 of 1 X Madonna Toledo MD PROGRESS NOTE
[2017-03-09 11:25] LABS: BASOPHIL% 0.8 % (0-2.5); EOSINOPHIL# 0.2 X10e3 (0-0.7); EOSINOPHIL% 3.2 % (0.0-7.0); HEMATOCRIT 43.6 % (38.0-50.0); HEMOGLOBIN 14.6 gm/dL (13.0-16.0); LYMPHOCYTE# 2.4 X10e3 (1.0-3.5); LYMPHOCYTE% 37.3 % (17.0-45.0); MEAN CELL VOLUME 91.5 FL (83-96); MEAN CORPUSCULAR HEMOGLOBIN 30.6 PG (28-34); MEAN CORPUSCULAR HGB CONC 33.4 g/dL (30-36); MEAN PLATELET VOLUME 8.6 FL (6.5-11.5); MONOCYTE# 0.6 X10e3 (0-1.0); MONOCYTE% 9.5 % (3.0-12.0); NEUTROPHIL# 3.1 X10e3 (1.5-7.1); NEUTROPHIL% 49.2 % (40-75); PLATELET COUNT 215 X10e3 (140-420); RED BLOOD COUNT 4.77 X10e (3.90-5.60); RED CELL DISTRIBUTION WIDTH 13.8 % (11.0-15.5); WHITE BLOOD COUNT 6.4 X10e3 (4.0-10.5)
[2017-03-09 11:30] LABS: ALBUMIN SERUM 3.7 g/dL (3.5-5.0); BILIRUBIN,TOTAL 0.3 mg/dL (0.2-2.0); CALCIUM SERUM 9.1 mg/dL (8.4-10.2); CREATININE SERUM 0.8 mg/dL (0.6-1.4); GLOM FILT RATE Estimated 111.8 mL/min (>60); PROTEIN TOTAL SERUM 6.1 g/dL (6.0-8.3)
[2017-03-09 11:34] LABS: THYROID STIMULATING HORMONE 0.82 uIU/ml (0.34-5.60)
[2017-03-09 11:41] LABS: FREE THYROXIN (T4) 0.7 ng/dL (0.58-1.64)
[2017-03-09 11:51] LABS: DIFF IND NO
[2017-03-10 09:45] LABS: URINE APPEARANCE CLEAR; URINE BILIRUBIN NEG (NEG); URINE BLOOD NEG (NEG); URINE COLOR YELLOW; URINE GLUCOSE NEG (NEG); URINE KETONE NEG (NEG); URINE LEUKOCYTE ESTERASE NEG (NEG); URINE NITRATE NEG (NEG); URINE PROTEIN NEG (NEG); URINE SPECIFIC GRAVITY 1.027 (1.003-1.035); URINE UROBILINOGEN 0.2 MG/DL (NEG)
[2017-03-10 10:29] LABS: AMPHETAMINE NEG (NEG); BARBITURATES NEG (NEG); BENZODIAZEPINES POS (NEG); COCAINE NEG (NEG); MARIJUANA NEG (NEG); OPIATES NEG (NEG); TRICYCLIC ANTIDEPRESSANTS NEG (NEG); U METHADONE NEG (NEG)
== END 2017-03-12 09:59 | disposition home or self-care (01) | DRG 885 ==
LOC: P1E 20:09 → P2S 03-11 20:16
PROVIDERS: Psychiatry & Neurology Psychiatry
DX: F33.1 Major depressive disorder, recurrent, moderate (principal); R45.851 Suicidal ideations; F10.230 Alcohol dependence with withdrawal, uncomplicated; B18.2 Chronic viral hepatitis C; F17.210 Nicotine dependence, cigarettes, uncomplicated; M19.90 Unspecified osteoarthritis, unspecified site; G89.29 Other chronic pain; H35.30 Unspecified macular degeneration
CPT/HCPCS: 80053; 80307; 81003; 84439; 84443; 85025; 86592

== ENCOUNTER 2017-03-18 17:16 | Inpatient (IN) | payer OTHER ==
[~2017-03-18] VITALS: Ht 167.6 cm; Wt 65.8 kg
--- NOTE | ~2017-03-18 | HP ---
Unit #: [id number] #: [id number] Patient: BROOKE GOMEZ [id number] [facility] [address] [place] [address] [id number] I MR#: [id number] NAME: BROOKE GOMEZ ROOM: P175 Age: 41 Sex: M Admission Date: 03/18/2017 : 1975 Attending Physician: Madonna Toledo M.D. Admitting Physician: Madonna Toledo M.D. Primary Care Physician: Dick Chino M.D. HISTORY AND PHYSICAL Brooke is a 41 year old admitted to [facility] because of his continued polysubstance abuse which includes heroin, meth and alcohol. He was just discharged from this facility after treatment for the same. The patient was seen and H and P dated 03/09/17 was reviewed. This is current. No changes. Please see H and P dated 03/09/17. Dictated by... Maicol CookARip. for Elsa Hickey/jose TD: 03/19/2017 20:10 JOB #: [id number] HISTORY AND PHYSICAL Page 1 of X Juliana Leavitt HISTORY AND PHYSICAL
--- NOTE | ~2017-03-18 | DS ---
Unit #: [id number] #: [id number] Patient: BROOKE DESOUZA [id number] [facility] [address] [place] [address] [id number] MR#: [id number] NAME: BROOKE DESOUZA ROOM: 75 Age: 41 Sex: M Admission Date: 03/18/2017 : 1975 Discharge Date: 03/21/2017 Attending Physician: Madonna Toledo M.D. Primary Care Physician: Dick Chino M.D. DISCHARGE SUMMARY IDENTIFYING DATA Mr. Desouza is a 41-year-old single white male who is a resident of [place], [place] and is known to us from previous encounter and was recently discharged from my care and self-referred back to the hospital. HISTORY OF PRESENT ILLNESS Please see initial psychiatric evaluation. PAST PSYCHIATRIC HISTORY Please see initial psychiatric evaluation. PAST MEDICAL HISTORY Please see initial psychiatric evaluation. HOSPITAL COURSE The patient was admitted to the adult psychiatric and chemical dependency unit at [facility] and was oriented to the hospital environment. Routine p.r.n. medications were initiated. However, detox protocol was not initiated as patient was just detoxed and left the hospital 6 days ago and he was rather confronted with the fact that this is the 58th time he has been in this particular hospital and we have detoxed him that many times and that yet he refuses to followup with any treatment recommendations outside of the hospital and that he leaves the hospital just so he can get drunk and come back to the hospital and wants to get detoxed and then leave the hospital, follows up with no treatment recommendations. However, he was admitted this time because he was voicing suicidal thoughts and therefore was put on a suicide watch and he did not like that as he usually likes to just come sleep and eat and since he was on suicide watch, he almost was going to change his mind stating that he is not suicidal anymore and that he just wants to leave and he was not seen to be a danger to self or anyone else and as such it was decided he will be discharged and will continue treatment on outpatient basis. DISCHARGE DIAGNOSES PSYCHIATRIC: 1. Major depressive disorder, recurrent, moderate, without psychotic features. 2. Alcohol dependence, moderate. MEDICAL: Hepatitis C. STRESSORS: Moderate psychosocial stressors. Unit #: [id number] #: [id number] Patient: BROOKE DESOUZA DISCHARGE MEDICATIONS None. CONDITION AT DISCHARGE Stable. PROGNOSIS Guarded. Dictated by... Elsa Jones/jose TD: 03/21/2017 18:18 JOB #: [id number] DISCHARGE SUMMARY Page 1 of 1 X Madonna Toledo MD X DISCHARGE SUMMARY
--- NOTE | ~2017-03-18 | PN ---
Unit #: [id number] #: [id number] Patient: BROOKE DESOUZA [id number] [facility] [address] [place] [address] [id number] I MR#: [id number] NAME: BROOKE DESOUZA. ROOM: [facility] Age: 41 Sex: M Admission Date: 03/18/2017 : 1975 Attending Physician: Madonna Toledo M.D. Admitting Physician: Madonna Toledo M.D. Primary Care Physician: Elsa Daniels PROGRESS NOTES DATE March 20, 2017 DISCUSSION Mr. Desouza is a 41-year-old white male, who was seen today and chart was reviewed and the case was discussed with the staff. He has been anxious, withdrawn, and rather seclusive to himself. Meanwhile, he has been cooperative with the treatment recommendations and he has been taking the medications and tolerating them fairly well with no reported side effects. MENTAL STATUS EXAMINATION Middle-aged white male, who was casually dressed with fair personal hygiene and appears to be in no acute distress or discomfort. He was awake and alert with intact orientation. His mood is anxious with a congruent affect. His speech is slow and goal-directed. He denies any suicidal or homicidal ideations. His insight and judgment remain slightly impaired. TREATMENT PLAN 1. We will continue him on his current medications and treatment protocol, and will monitor his response to the medications, and make further adjustments as needed. 2. We will continue to followup. Dictated by... Elsa Jones/jana TD: 03/20/2017 10:11 JOB #: [id number] Unit #: [id number] #: [id number] Patient: BROOKE DESOUZA VALARIE PROGRESS NOTES Page 1 of 1 X Madonna Toledo MD PROGRESS NOTE
== END 2017-03-21 09:00 | DRG 885 ==
LOC: P2L 19:54 → P1E 19:54
DX: F33.1 Major depressive disorder, recurrent, moderate (principal); F10.20 Alcohol dependence, uncomplicated; F17.210 Nicotine dependence, cigarettes, uncomplicated